=== PATIENT | male | born 1950 | race Caucasian/White ===

== ENCOUNTER 2020-07-30 02:15 | Inpatient (IN) | payer MEDICARE, OTHER, SELFPAY ==
[2020-07-30] VITALS (59 sets, daily range): BP systolic 105–195; BP diastolic 52–102; PULSE 53–91; RESP 13–34; TEMP 35.9–36.2; O2SAT 70–100; BMI 20.4
[2020-07-30 03:00] LABS: COVID19 -Nasal RAPID Negative (Negative)
[2020-07-30] MEDS: SODIUM CHLORIDE 0.9% 1,000 ML 100 ML IV ×2 (03:00→21:48)
[2020-07-30 03:01] LABS: Add Manual Diff / Slide Review NO; Basophils Absolute Auto 0 /uL (0-100); Basophils Percent Auto 0.1 % (0-2); Eosinophils Absolute Auto 0 /uL (0-450); Hematocrit 34.8 % (41-53); Hemoglobin 11.7 g/dL (13.5-17.5); Lymphocytes Absolute Auto 100 /uL (1100-4500); Lymphocytes Percent Auto 2.3 % (25-40); Mean Corpuscular HGB Conc 33.8 % (30-36); Mean Corpuscular Hemoglobin 32.2 PG (26-34); Mean Corpuscular Volume 95.4 fL (80-100); Monocytes Absolute Auto 100 /uL (0-900); Monocytes Percent Auto 1.6 % (3-14); Neutrophils Absolute Auto 5300 /uL (1500-7000); Platelet Count 274 X10^3/uL (150-400); Red Blood Cell Count 3.65 X10^6/uL (4.5-5.9); Red Cell Distribution Width 12.6 % (11.6-14.8); White Blood Cell Count 5.6 X10^3/uL (4.5-11.0)
[2020-07-30 03:12] LABS: Alanine Aminotransferase 22 IU/L (<50); Albumin 3.9 g/dL (3.5-5.0); Albumin Globulin Ratio 1.2 (1.0-2.8); Alkaline Phosphatase 63 U/L (38-126); Aspartate Aminotransferase 27 IU/L (17-59); Bilirubin Total 0.7 mg/dL (0.2-1.3); Blood Urea Nitrogen 33 mg/dL (9-20); Calcium 9.5 mg/dL (8.4-10.2); Estimated Glomerular Filt Rate > 60.0 mL/min (>60); Globulin 3.3 g/dL (1.7-4.1); Glucose 100 mg/dL (80-110); HEMOLYSIS < 15 (0-50); Potassium 4.9 mmol/L (3.4-5.1); Sodium 124 mmol/L (137-145); Total Protein 7.2 g/dL (6.3-8.2)
[2020-07-30] MEDS: methylPREDNISolone 125 MG/2 ML VIAL 60 MG IV ×3 (03:15→19:12)
[2020-07-30 03:18] LABS: Carbon Dioxide 36 mmol/L (22-32)
[2020-07-30] MEDS: carvediloL 6.25 MG TABLET PO ×3 (03:18→21:47)
[2020-07-30 03:19] LABS: Chloride 76 mmol/L (98-107)
--- NOTE | 2020-07-30 03:27 | P.HP_ITS ---
History of Present Illness History of Present Illness Date Patient Seen: 07/30/20 Time Patient Seen: 03:00 Chief complaint: COPD exacerbation on bipap Narrative: Joseph Soliman 69-year-old male with end-stage COPD, essential hypertension who is a direct transfer from [facility] for acute hypoxic and hypercarbic respiratory failure. He is home oxygen-dependent normally is supposed to use 3 L during the day and 5 L at night. He also uses a Trilogy machine for BiPAP and CPAP mode as he also has obstructive sleep apnea. He states that it has been hard to breathe and he for the past several weeks has been using 5 L of oxygen during the day instead of reducing it down to 3 L. He denies fevers sweats or chills, denies chest pain, denies ever having cardiac issues, denies nausea or vomiting, denies abdominal pain, denies dysuria diarrhea or constipation. He does have exertional dyspnea which limits his activities at home. The patient was requested for a lateral transfer at the patient's family's request with specific avoidance of 1 of the providers there. Per the admitting provider's note she had contacted the family member to update her on patient's condition and in her note stated that she informed the daughter that she was concerned that patient may not make it through the night because of his dyspnea and that at that time he was on BiPAP and only saturating at 93%. I did speak to the daughter and she was very upset about that initial phone call and demanded that the hospital transfer him to this facility. Per the transferring provider who was different from the admitting provider, the patient initially presented with a pH of 7.18 and a CO2 of 86 and then at 4:00 p.m. his pH was 7.27 with a CO2 of 73. On 35% FiO2 ePAP 5 and a respiratory rate of 20. The patient is unaware of what his Trilogy settings are at home. While at [facility] he was diagnosed with an acute respiratory failure secondary to exacerbation of end-stage COPD and pneumonia. He was initiated on IV ceftriaxone and IV azithromycin and received one dose there. Upon arrival to the floor the patient's temperature was 97.2?, blood pressure 14 5/75, heart rate 87, respiratory rate of 20 2% on FiO2 of 35 oxygen saturation of 95% he weighs 60.9 kg. WBC drawn here was 5.6, RBC 3.65, hemoglobin 11.7, hematocrit 34.8, platelet count was 274. His WBC upon arrival to [facility] was over 18,000 per the record. Our initial ABG indicated improvement with the ABG of pH of 7.32, pCO2 of 74.5, PO2 of 83, bicarb of 39, CO2 41, with a base excess of 12, FiO2 35%, sodium was 124, potassium 4.9, chloride 76, CO2 36, BUN 33, creatinine 0.75, GFR is greater than 6, glucose 100, magnesium 2.0, calcium 9.5, liver enzymes are within normal limits, troponin is 0.020, proBNP is 398, COVID-19 is negative. Patient History Medical History (Updated 07/30/20 @ 04:48 by KIERSTEN Santiago) Acute on chronic respiratory failure with hypoxia and hypercapnia (Acute) Benign prostatic hyperplasia with urinary retention (Chronic) COPD (chronic obstructive pulmonary disease) (Acute) Essential hypertension (Acute) Hx of prostatic malignancy (Acute) Hypercapnemia (Acute) Obstructive sleep apnea (Chronic) Surgical History (Updated 07/30/20 @ 03:34 by KIERSTEN Santiago) History of cataract removal with insertion of prosthetic lens (Acute) Family & Social History Family History (Updated 07/30/20 @ 03:37 by KIERSTEN Santiago) Father Primary cancer of brain Colon polyps Mother Ovarian cancer Social History: Lives with and step daughter. 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 Tobacco & Substance use: 45 year pack history, quit 2009 drinks 3 beers a day Comment: Retired [employer] Home Medications and Allergies Allergies Allergy/AdvReac Type Severity Reaction Status Date / Time No Known Drug Allergies Allergy Verified 07/30/20 03:14 Review of Systems Review of Systems ROS: Yes All systems reviewed with the patient and are negative except as otherwise documented Exam Vital Signs (past 8 hours): - 07/30/20 02:10 07/30/20 02:40 07/30/20 03:18 Temperature 97.2 F L Pulse Rate 91 H 90 89 Respiratory Rate 25 H 23 Blood Pressure 145/75 H 145/75 H 145/75 H Pulse Oximetry 96 95 Fraction of Inspired Oxygen 40 Oxygen Delivery Method BiPAP Narrative Exam Narrative: Gen: Alert, oriented, thin 69 y.o. male, on bipap HEENT: normocephalic, atraumatic, conjunctiva clear, sclera non-icteric, oral mucosa pink and moist Neck: supple, full ROM, no JVD, trachea is midline Resp: On BiPap, lungs sounds deminished but clear, accesory muscle use CV: tachy but regular, no murmur or rubs Abd: soft, non-tender, normoactive BTs Skin: multiple bruises on hands and arms, uneven pigmentation Neuro: Alert and oriented X 4 w/no focal deficits. Speech clear and coherent. Extremities: moves all 4 extremities, is ambulatory, lack of lower extremity muscle mass, negative Jayson?s sign Psyche: normal mood and affect. Objective Labs Result Diagrams: 07/30/20 02:43 07/30/20 02:43 Labs: Laboratory Results - last 24 hr 07/30/20 07/30/20 07/30/20 02:00 02:43 02:43 WBC 5.6 RBC 3.65 L Hgb 11.7 L Hct 34.8 L MCV 95.4 MCH 32.2 MCHC 33.8 RDW 12.6 Plt Count 274 Neut % (Auto) 96.0 H Lymph % (Auto) 2.3 L [place] % (Auto) 1.6 L Eos % (Auto) 0.0 L Baso % (Auto) 0.1 Neut # (Auto) 5300 Lymph # (Auto) 100 L [place] # (Auto) 100 Eos # (Auto) 0 Baso # (Auto) 0 Sodium 124 L Potassium 4.9 Chloride 76 L* Carbon Dioxide 36 H BUN 33 H Creatinine 0.75 Estimated GFR > 60.0 BUN/Creatinine Ratio 44.0 H Glucose 100 Calcium 9.5 Magnesium 2.0 Total Bilirubin 0.7 AST 27 ALT 22 Alkaline Phosphatase 63 Total Protein 7.2 Albumin 3.9 Globulin 3.3 Albumin/Globulin Ratio 1.2 COVID-19 PCR Negative Assessment & Plan Assessment & Plan narrative: Joseph Soliman is admitted to the ICU for acute respiratory failure secondary to hypoxia and hypercapnia associated with an acute exacerbation of COPD as a direct admission from [facility]. Acute respiratory failure secondary to hypoxia and hypercapnia associated with an acute exacerbation of COPD, present on admission -patient is placed on BiPAP settings of 35%, peep of 5, respiratory rate of 20 with a goal oxygenation between 87-93%. -albuterol, DuoNeb, and Pulmicort nebulizers -I have written him for 2 doses of Solu-Medrol 125 mg -Currently has a compensated respiratory acidosis. ABG in the mornings -Patient is housed in the ICU Presumed [place] [address] at [facility], improved upon admission -continue IV azithromycin 500 mg daily and IV ceftriaxone 1 g daily, consider deescalating with improvement Essential hypertension, chronic chronic present on admission -continue home dose of carvedilol 6.25 mg p.o. b.i.d., lisinopril 40 mg p.o. daily, and diltiazem 360 mg p.o. daily -will need to locate PCP records to see if the patient has a history of atrial fibrillation -he will be on telemetry -EKG was normal sinus rhythm VTE prophylaxis: Wells risk score: 1.5 intermediate risk Enoxaparin 40 mg subQ daily Consults: none Patient is admitted under inpatient status with expected length of stay greater than 2 midnights due to severity of presenting symptoms, risk of adverse event, and complexity of treatment plan. FEN: IV NS at 100 ml/hour, low sodium, C/BMP and magnesium in the am of 07/31 Dispo: Eventual discharge to home. Daughter has arranged for multimedia specialist care and if he is deconditioned will want in-home PT. Contact: Debbie, contact info in the chart Code Status: DNR/DNI as discussed with patient. Scores Wells' Criteria for PE Clinical signs and symptoms of DVT: No PE is #1 Dx or equally likely: No Heart rate > 100: No Immobilization at least 3 days or surg in previous 4 weeks: Yes History of PE or DVT: No Hemoptysis: No Malignancy w/Treatment within 6 months or palliative: No Wells' PE Score total: 1.5 Quality VTE Deep Vein Thrombosis/Pulmonary Embolism Present on Admission: No
[2020-07-30 03:34] LABS: PCO2 ABG 74.5 mmHg (35-45); pH ABG 7.32 (7.35-7.45)
[2020-07-30 03:35] LABS: Fractionated Inspired Oxygen 0.35; HCO3 ABG 39 mmol/L (22-26); Oxygen Saturation ABG 95 % (95-100); PO2 ABG 83 mmHg (80-100); TCO2 ABG 41 mmol/L (21-31)
[2020-07-30 03:50] LABS: NT-proBNP (BNP-Adult 18+) 398 pg/mL (<125)
[2020-07-30] MEDS: AZITHROMYCIN 500 MG in DEXTROSE 5% IN WATER 250 ML IV (05:28)
[2020-07-30 06:31] LABS: Bacteria Urine None Seen; WBC Urine None Seen (0-5/HPF)
[2020-07-30 06:32] LABS: Appearance Urine UA CLEAR; Bilirubin Urine UA NEGATIVE (NEGATIVE); Color Urine UA YELLOW; Glucose Urine UA NEGATIVE (Negative); Ketones Urine UA 1+ (NEGATIVE); Leukocyte Esterase Urine UA NEGATIVE (NEGATIVE); Nitrite Urine UA NEGATIVE (Negative); Occult Blood Urine UA TRACE-INTACT (Negative); Protein Urine UA NEGATIVE (Negative); Specific Gravity Urine UA 1.015 (1.000-1.035); Urobilinogen Urine UA 0.2 E.U./dL (0.2); pH Urine UA 5.5 (4.5-8.0)
[2020-07-30 06:42] LABS: Culture Indicated Urine Cult Not Indicated; Hyaline Casts Urine 0-1/LPF; RBC Urine 0-1/HPF (0-5/HPF); Squamous Epithelial Cell Urine 0-1 /HPF (0-5/HPF)
--- NOTE | 2020-07-30 06:42 | PC.NURSE ---
Admit Note-Patient is direct admit from [facility], arrived to room 227 at 0200, alert, oriented to person, place, and situation, forgetful but able to participate in care and answer questions. Placed on our Bi-pap .35, 20/5, 16, patient is tachypneic, breathing 20s-30s, LS tight and diminished. SpO2 goal 87-93%, patient holds at that while HOB elevated, will desat to 83% if down, and slow to recover. SR, VSS. Covid-19 negative. Daughter, Debbie Abebe, who is DPOA arrived for short visit with patients cell phone, tablet, order entry, glasses, his trilogy, and clothes, she will return later today Soon after arrival RT changed Bi-pap settings to .30, 20/5, rate 20.
[2020-07-30] MEDS: ALBUTEROL/IPRATROPIUM 3 ML AMPUL INH ×2 (07:18→10:13)
[2020-07-30] MEDS: BUDESONIDE 0.5 MG/2 ML NEB INH ×2 (07:18→21:22)
[2020-07-30] MEDS: lisinopriL 20 MG TABLET 40 MG PO (08:50)
[2020-07-30] MEDS: ENOXAPARIN 40 MG/0.4 ML SYRINGE SUBCUT (08:50)
[2020-07-30] MEDS: dilTIAZem CD 180 MG CAP 360 MG PO (08:51)
[2020-07-30] MEDS: PANTOPRAZOLE 40 MG VIAL IV (08:52)
[2020-07-30 10:23] LABS: PCO2 ABG 86.4 mmHg (35-45); PO2 ABG 71 mmHg (80-100); pH ABG 7.25 (7.35-7.45)
[2020-07-30 10:24] LABS: Fractionated Inspired Oxygen 35; HCO3 ABG 38 mmol/L (22-26); Oxygen Saturation ABG 90 % (95-100); TCO2 ABG 40 mmol/L (21-31)
[2020-07-30] MEDS: CEFTRIAXONE 1 GM/50 ML FROZ.PIGGY IV (12:08)
[2020-07-30 13:17] LABS: BUN Creatinine Ratio 52.9 (6-22); Blood Urea Nitrogen 37 mg/dL (9-20); Carbon Dioxide 38 mmol/L (22-32); Chloride 78 mmol/L (98-107); Estimated Glomerular Filt Rate > 60.0 mL/min (>60); Glucose 111 mg/dL (80-110); HEMOLYSIS < 15 (0-50); Potassium 5.3 mmol/L (3.4-5.1); Sodium 122 mmol/L (137-145)
[2020-07-30 13:39] LABS: Procalcitonin 0.28 ng/mL (<0.5)
--- NOTE | 2020-07-30 15:18 | PC.NURSE ---
PT ON BIPAP MOST OF DAY AT 30-35% WITH SPO2 86-96% LUNGS COARSE THROUGHOUT - NO NOTED EDEMA - WORKLOAD OF BREATHING IMMENSE - DAUGHTER AT BEDSIDE AT PRESENT- DOES CONFIRM DNR/DNI- ORDER RECEIVED FOR COLUNGA PLACEMENT DUE TO DECREASED UOP-
[2020-07-30] MEDS: MORPHINE 2 MG/ML INJ IV (15:34)
[2020-07-30 15:37] LABS: Sodium Urine Random < 5 mmol/L (30-90)
--- NOTE | 2020-07-30 16:37 | CM.DANOTE ---
Addendum entered by Poppy Duarte 07/31/20 13:51: Update: Met with patient and daughter/Debbie in AM rounds. Patient actually uses trilogy at night at home. Notary available today and assisted patient with medical DPOA paperwork. Per Dr. Marinelli patient's status unclear at this time. If patient remains hospitalized on Thursday08-03-20 he may consult palliative. However, he plans to discuss this with patient and family first. P: CM team following closely. KJS Original Note: DCP/Assessment: Reviewed chart. Patient is a 69 year old male admitted [facility] with [facility] failure. PCP: listed is Jazmin Mauricio. Primary payor is 1)[employer] 2)[employer]. Met with patient in AM rounds. Provider reports patient currently with COPD exacerbation. Patient currently on BiPAP. Received request this afternoon from RN indicating that patient's daughter/DPOA Debbie wanted to see CM produce team member. Met with Sania in patient's room explained CM/SW role. Daughter reports that there has been a lot of stress at home. Currently patient and spouse in process of removing there other daughter from the home. DPOA/Debbie reports that this has been very stressful for patient. Also patient having difficulty with breathing due to air quality. Patient live with spouse and other family members. Daughter reports that plan is for patient to return home when stable. Daughter/Debbie and her daughter plan to caregiver 01/06 both patient and spouse. Provided daughter with DPOA paperwork as she requested. Daughter does have paperwork indicating she is DPOA but she would like to update it to exclude her sister. In original document sister was listed as 2nd to contact. In addition, current paperwork is not notarized which daughter would prefer. P: CM team to follow closely. Would recommend therapy evaluation when patient medically appropriate. Patient may benefit from home health. GODFREY Morrison Discharge Planning/Care Management Advanced directive, confirm from FAMILY Start: 07/30/20 04:19 Freq: Q24H Status: Active Protocol: Document 07/30/20 05:00 SMS (Rec: 07/30/20 06:10 SMS [id number]) Advance Directive, confirm on record Time 05:00 Person contacted Debbie Abebe Copy received Yes Advanced directive available on record Yes CM Discharge Assessment Start: 07/30/20 16:31 Freq: Status: Active Protocol: Document 07/30/20 16:32 KJS (Rec: 07/30/20 16:37 KJS [id number]) Discharge Planning Assessment Assigned Hand Launderer GODFREY Morrison Contact Information Debbie Abbee # [phone] Advance Directives? Yes: has at home History Provided By Patient,Family Member,Medical Record Prior Living Arrangements House Household Members spouse,family Type of transporation used prior to Relies on Others admit Independent with ADL's Yes Is patient alert and oriented? Yes Caregiver for Another Yes: caregiver for spouse DME Already Rented / Owned Oxygen Comment CPAP for home use. Barriers to Discharge No Comment Anticipate that patient will d /c home with supportive family . Unclear at this time if patient will have any d/c needs. Discharge Plan Home Whiteboard Updated in Patient Room with Yes name and ext. # of Hand Launderer Review Status In Process Next Review Type Continued Stay Review
[2020-07-31] VITALS (59 sets, daily range): BP systolic 84–162; BP diastolic 50–76; PULSE 43–67; RESP 12–44; TEMP 31–36.5; O2SAT 79–100
[2020-07-31] MEDS: MORPHINE 2 MG/ML INJ IV ×3 (01:59→19:37)
[2020-07-31] MEDS: methylPREDNISolone 125 MG/2 ML VIAL 60 MG IV ×3 (01:59→19:36)
[2020-07-31] MEDS: AZITHROMYCIN 500 MG in DEXTROSE 5% IN WATER 250 ML IV (02:20)
[2020-07-31 05:30] LABS: Add Manual Diff / Slide Review NO; Basophils Absolute Auto 0 /uL (0-100); Basophils Percent Auto 0.3 % (0-2); Eosinophils Absolute Auto 0 /uL (0-450); Eosinophils Percent Auto 0.1 % (2-4); Hemoglobin 11.2 g/dL (13.5-17.5); Lymphocytes Absolute Auto 300 /uL (1100-4500); Lymphocytes Percent Auto 4.9 % (25-40); Mean Corpuscular HGB Conc 33.9 % (30-36); Mean Corpuscular Hemoglobin 32.4 PG (26-34); Mean Corpuscular Volume 95.5 fL (80-100); Monocytes Absolute Auto 400 /uL (0-900); Monocytes Percent Auto 6.5 % (3-14); Neutrophils Absolute Auto 4800 /uL (1500-7000); Neutrophils Percent Auto 88.2 % (50-75); Platelet Count 272 X10^3/uL (150-400); Red Blood Cell Count 3.46 X10^6/uL (4.5-5.9); Red Cell Distribution Width 12.1 % (11.6-14.8); White Blood Cell Count 5.5 X10^3/uL (4.5-11.0)
[2020-07-31 05:43] LABS: Alanine Aminotransferase 18 IU/L (<50); Albumin 3.5 g/dL (3.5-5.0); Albumin Globulin Ratio 1.3 (1.0-2.8); Alkaline Phosphatase 56 U/L (38-126); Aspartate Aminotransferase 21 IU/L (17-59); BUN Creatinine Ratio 55.2 (6-22); Bilirubin Total 0.3 mg/dL (0.2-1.3); Blood Urea Nitrogen 48 mg/dL (9-20); Calcium 9.2 mg/dL (8.4-10.2); Carbon Dioxide 39 mmol/L (22-32); Chloride 80 mmol/L (98-107); Estimated Glomerular Filt Rate > 60.0 mL/min (>60); Globulin 2.8 g/dL (1.7-4.1); Glucose 179 mg/dL (80-110); HEMOLYSIS < 15 (0-50); Magnesium 2.2 mg/dL (1.6-2.3); Potassium 5.2 mmol/L (3.4-5.1); Sodium 123 mmol/L (137-145); Total Protein 6.3 g/dL (6.3-8.2)
--- NOTE | 2020-07-31 06:29 | PC.NURSE ---
Lathe Operator Note-Patient wore Bi-pap throughout the night, FIO2 .30, 20/5, 20, SpO2 >92% RR 20s mostly. Voided 200ml in urinal at 0200, says he still feels like he has to urinate, agreeable to Ortiz placement, has had 100ml alison UOP since. Patient asked if he was getting the furosemide, discussed that with the in-house CONDEMNATION ENGINEER. Medicated with 2mg IV morphine once for dyspnea after activity.
--- NOTE | 2020-07-31 08:09 | PC.NURSE ---
INITIAL ASSESSMENT COMPLETE- pt reported not sleeping well at all last pm- did report both incisional pain and sensations of a full rectum-reporting she has passed 2 small stools rectally- per her request, she was medicated for this discomfort and with lorazepam for her anxiety and allowed to nap this am after taking some breakfast -
[2020-07-31] MEDS: PANTOPRAZOLE 40 MG VIAL IV (08:51)
[2020-07-31] MEDS: ENOXAPARIN 40 MG/0.4 ML SYRINGE SUBCUT (08:52)
[2020-07-31] MEDS: SODIUM CHLORIDE 0.9% FLUSH 10 ML IV (08:52)
[2020-07-31] MEDS: lisinopriL 20 MG TABLET 40 MG PO (08:52)
[2020-07-31] MEDS: carvediloL 6.25 MG TABLET PO (08:52)
[2020-07-31] MEDS: dilTIAZem CD 180 MG CAP 360 MG PO (08:53)
[2020-07-31 09:46] LABS: Fractionated Inspired Oxygen 30; HCO3 ABG 40 mmol/L (22-26); Oxygen Saturation ABG 88 % (95-100); PCO2 ABG 79.6 mmHg (35-45); PO2 ABG 63 mmHg (80-100); TCO2 ABG 42 mmol/L (21-31); pH ABG 7.31 (7.35-7.45)
[2020-07-31] MEDS: SODIUM CHLORIDE 0.9% 1,000 ML 100 ML IV (10:11)
[2020-07-31] MEDS: ALBUTEROL/IPRATROPIUM 3 ML AMPUL INH (10:42)
[2020-07-31] MEDS: BUDESONIDE 0.5 MG/2 ML NEB INH ×2 (10:42→19:24)
[2020-07-31] MEDS: CEFTRIAXONE 1 GM/50 ML FROZ.PIGGY IV (12:20)
--- NOTE | 2020-07-31 12:20 | P.PN_ITS ---
Subjective Subjective Date Patient Seen: 07/31/20 Time Patient Seen: 12:20 Interval history: Joseph Soliman 69-year-old male with end-stage COPD, essential hypertension who is a direct transfer from [facility] for acute hypoxic and hypercarbic respiratory failure. He is being managed for a COPD exacerbation and possible pneumonia. His blood gases remained fairly stable with a pCO2 of around 80. His acidosis is improving despite this. He appears more comfortable and alert on BiPAP therapy, but when taken off of BiPAP desaturates quickly and gets very tachypneic. He denies any chest pain, nausea, vomiting, palpitations. He has no abdominal pain. He has no lower extremity edema or orthopnea. Had a long discussion with the patient and daughter at bedside regarding his COPD and that his prognosis is extremely poor given the severity of his COPD and continued need for BiPAP therapy. They are open to a palliative care consultation if the patient is still here on Thursday, when the palliative care provider returns. We further did discuss that he could still worsen, and given that he is very clear about not wanting to be hooked up to a breathing machine he still may not make it through this hospitalization. Exam Vital Signs (past 8 hours): - 07/31/20 04:30 07/31/20 05:00 07/31/20 05:30 Temperature Pulse Rate 54 L 52 L 52 L Respiratory Rate 24 23 22 Blood Pressure 125/61 Pulse Oximetry 96 96 96 07/31/20 05:47 07/31/20 06:00 07/31/20 07:00 Temperature Pulse Rate 51 L 50 L Respiratory Rate 24 23 Blood Pressure 125/61 116/56 L 123/56 L Pulse Oximetry 97 97 07/31/20 08:00 07/31/20 09:00 07/31/20 09:45 Temperature 96.5 F L Pulse Rate 49 L 60 59 L Respiratory Rate 18 32 H 29 H Blood Pressure 126/60 162/76 H Pulse Oximetry 97 92 95 07/31/20 10:00 07/31/20 10:46 07/31/20 11:00 Temperature 97.7 F Pulse Rate 59 L 59 L Respiratory Rate 33 H 26 H Blood Pressure 135/63 136/72 Pulse Oximetry 94 90 L 07/31/20 12:00 Temperature Pulse Rate 55 L Respiratory Rate 26 H Blood Pressure 123/58 L Pulse Oximetry 95 Fraction of Inspired Oxygen 30 Oxygen Delivery Method BiPAP Oxygen Flow Rate 3 Narrative Exam Narrative: Gen: Alert, oriented, thin 69 y.o. male, on bipap HEENT: normocephalic, atraumatic, conjunctiva clear, sclera non-icteric, oral mucosa pink and moist Neck: supple, full ROM, no JVD, trachea is midline Resp: On BiPap, lungs sounds deminished but clear, accesory muscle use CV: tachy but regular, no murmur or rubs Abd: soft, non-tender, normoactive BTs Skin: multiple bruises on hands and arms, uneven pigmentation Neuro: Alert and oriented X 4 w/no focal deficits. Speech clear and coherent. Extremities: moves all 4 extremities, is ambulatory, lack of lower extremity muscle mass, negative Jayson?s sign Psyche: normal mood and affect. Objective Labs Result Diagrams: 07/31/20 04:52 07/31/20 04:52 Labs: Laboratory Results - last 24 hr 07/30/20 07/30/20 07/30/20 03:10 04:40 10:00 WBC RBC Hgb Hct MCV MCH MCHC RDW Plt Count Neut % (Auto) Lymph % (Auto) [place] % (Auto) Eos % (Auto) Baso % (Auto) Neut # (Auto) Lymph # (Auto) [place] # (Auto) Eos # (Auto) Baso # (Auto) ABG pH 7.32 L 7.25 L* ABG pCO2 74.5 H* 86.4 H* ABG pO2 83 71 L ABG HCO3 39 H 38 H ABG Total CO2 41 H 40 H ABG O2 Saturation 95 90 L ABG Base Excess 12.0 H 10.0 H FiO2 0.35 35 Sodium Potassium Chloride Carbon Dioxide BUN Creatinine Estimated GFR BUN/Creatinine Ratio Glucose Calcium Magnesium Total Bilirubin AST ALT Alkaline Phosphatase Total Protein Albumin Globulin Albumin/Globulin Ratio Procalcitonin Ur Random Sodium < 5 L 07/30/20 07/30/20 07/31/20 12:50 12:50 04:52 WBC 5.5 RBC 3.46 L Hgb 11.2 L Hct 33.0 L MCV 95.5 MCH 32.4 MCHC 33.9 RDW 12.1 Plt Count 272 Neut % (Auto) 88.2 H Lymph % (Auto) 4.9 L [place] % (Auto) 6.5 Eos % (Auto) 0.1 L Baso % (Auto) 0.3 Neut # (Auto) 4800 Lymph # (Auto) 300 L [place] # (Auto) 400 Eos # (Auto) 0 Baso # (Auto) 0 ABG pH ABG pCO2 ABG pO2 ABG HCO3 ABG Total CO2 ABG O2 Saturation ABG Base Excess FiO2 Sodium 122 L Potassium 5.3 H Chloride 78 L Carbon Dioxide 38 H BUN 37 H Creatinine 0.70 Estimated GFR > 60.0 BUN/Creatinine Ratio 52.9 H Glucose 111 H Calcium 9.0 Magnesium Total Bilirubin AST ALT Alkaline Phosphatase Total Protein Albumin Globulin Albumin/Globulin Ratio Procalcitonin 0.28 Ur Random Sodium 07/31/20 07/31/20 04:52 08:33 WBC RBC Hgb Hct MCV MCH MCHC RDW Plt Count Neut % (Auto) Lymph % (Auto) [place] % (Auto) Eos % (Auto) Baso % (Auto) Neut # (Auto) Lymph # (Auto) [place] # (Auto) Eos # (Auto) Baso # (Auto) ABG pH 7.31 L ABG pCO2 79.6 H* ABG pO2 63 L ABG HCO3 40 H ABG Total CO2 42 H ABG O2 Saturation 88 L ABG Base Excess 13.0 H FiO2 30 Sodium 123 L Potassium 5.2 H Chloride 80 L Carbon Dioxide 39 H BUN 48 H Creatinine 0.87 Estimated GFR > 60.0 BUN/Creatinine Ratio 55.2 H Glucose 179 H Calcium 9.2 Magnesium 2.2 Total Bilirubin 0.3 AST 21 ALT 18 Alkaline Phosphatase 56 Total Protein 6.3 Albumin 3.5 Globulin 2.8 Albumin/Globulin Ratio 1.3 Procalcitonin Ur Random Sodium Assessment & Plan Assessment & Plan narrative: Joseph Soliman is a 69 year old male with PMH of HTN and severe COPD admitted for acute on chronic respiratory failure secondary to hypoxia and hypercapnia associated with an acute exacerbation of COPD as a d irect admission from [facility]. He has shown minimal improvement with BIPAP but remains DNR/DNI. 1. Acute on chronic hypoxemic and hypercapnic Respiratory failure, present on admission -patient has been on BiPAP therapy for close to 48 hours without improvement in PCO2 although his acidosis seemed to be improving. Patient is adament about DNR/DNI status. Warned patient and family that his prognosis is poor and he may not survive the hospitalization. They are interested in palliative care consultation if he is still here on Thursday when service is again available. -albuterol, DuoNeb, and Pulmicort nebulizers -continue IV steroids 60 mg q8 hr. -imaging at [facility] did show diffuse interstitial prominence on the right. 2. Community acquired pneumonia -continue IV azithromycin 500 mg daily x3 doses and IV ceftriaxone 1 g daily x5 days [place] [address] [address] [facility] with imaging as noted above. 3. COPD with exacerbation, present on admisison - patient noted to have severe COPD at baseline with an FEV1/FVC of 13 per [facility] records. - continue management as noted above in problem #1. 4. Essential hypertension, chronic chronic present on admission -continue home dose of carvedilol 6.25 mg p.o. b.i.d., lisinopril 40 mg p.o. daily, and diltiazem 360 mg p.o. daily -EKG was normal sinus rhythm 5. Hyponatremia, chronic, present on admission - per [facility] records hyponatremia is chronic in the mid to low 120s. Urine sodium is <5, urine osm pending. Will continue NS infusion. VTE prophylaxis: Wells risk score: 1.5 intermediate risk Enoxaparin 40 mg subQ daily Dispo: Patient is admitted under inpatient status.prognosis remains guarded if continues without improvement on bipap. Code: DNR/DNI as discussed with patient and daughter. COVID-19 COVID-19 status: Negative Quality VTE Deep Vein Thrombosis/Pulmonary Embolism Present on Admission: No
--- NOTE | 2020-07-31 14:38 | PC.NURSE ---
pt continues to be bipap dependent at 30% fio2 - he can tolerate being off and on 4l hfnc for short periods of time ( meals etc)- plan is for to visit with POA- daughter later this day. Lung banuelos remain coarse and diminished- he doesn't tolerate hardly any exertion at all- refusing bath and oral care this shift- waffle cushion to decrease risk for skin breakdown- very poor nutrition continues- #2/2 liters of ns infusing- prn iv ms to ease the work of breathing rather than pain( which he denies)
[2020-07-31 16:31] LABS: Osmolality Urine 446 mOsmol/kg (.)
--- NOTE | 2020-07-31 23:24 | PC.NURSE ---
Evening shift note Pt continues to be bipap dependent 50% 20/5, receiving morphine 2mg Q4 for work of breathing, he has not been tolerating being off bipap for meals or visits well on 5L hfnc, desaturating to 70% while and daughter were here. Lung sounds are coarse and diminished bilaterally. Pt doesn't tolerate any exertion at all, refuses oral care, bathing during this nurses shift. Waffle cushion in place to decrease skin break down. Pt has remained lethargic, sleepy and bradycardic HR 54-44, BP has been low as well 84/50 being the lowest during this shift. Nutrition has been poor, urine output this shift has been 130mL, irrigated the farr to check for blockage, none was found. Daughter called at 2100 to check on father and ask if she should bring mother back tomorrow to spend time with father, I suggested she do so and also started the conversation regarding the possibility of making her Dad comfortable on Comfort Care. Daughter states that she would like to have that conversation with Dr Marinelli tomorrow. Bed low and locked, call light within reach, will continue to monitor.
[2020-08-01] VITALS (51 sets, daily range): BP systolic 89–167; BP diastolic 50–101; PULSE 46–72; RESP 12–33; TEMP 28.3–36.8; O2SAT 90–100
[2020-08-01] MEDS: AZITHROMYCIN 500 MG in DEXTROSE 5% IN WATER 250 ML IV (02:40)
[2020-08-01] MEDS: methylPREDNISolone 125 MG/2 ML VIAL 60 MG IV ×3 (02:41→18:45)
[2020-08-01 05:16] LABS: Add Manual Diff / Slide Review NO; Basophils Absolute Auto 0 /uL (0-100); Basophils Percent Auto 0.1 % (0-2); Eosinophils Absolute Auto 0 /uL (0-450); Hematocrit 31.7 % (41-53); Hemoglobin 10.9 g/dL (13.5-17.5); Lymphocytes Absolute Auto 200 /uL (1100-4500); Lymphocytes Percent Auto 3.4 % (25-40); Mean Corpuscular HGB Conc 34.3 % (30-36); Mean Corpuscular Hemoglobin 32.8 PG (26-34); Mean Corpuscular Volume 95.7 fL (80-100); Monocytes Absolute Auto 300 /uL (0-900); Monocytes Percent Auto 3.7 % (3-14); Neutrophils Absolute Auto 6500 /uL (1500-7000); Neutrophils Percent Auto 92.8 % (50-75); Platelet Count 271 X10^3/uL (150-400); Red Blood Cell Count 3.31 X10^6/uL (4.5-5.9); Red Cell Distribution Width 12.5 % (11.6-14.8)
[2020-08-01 05:24] LABS: Alanine Aminotransferase 15 IU/L (<50); Albumin 3.2 g/dL (3.5-5.0); Albumin Globulin Ratio 1.2 (1.0-2.8); Alkaline Phosphatase 49 U/L (38-126); Aspartate Aminotransferase 16 IU/L (17-59); BUN Creatinine Ratio 54.2 (6-22); Bilirubin Total 0.3 mg/dL (0.2-1.3); Bilirubin Unconjugated 0.1 mg/dL (0.0-1.1); Blood Urea Nitrogen 58 mg/dL (9-20); Calcium 9.1 mg/dL (8.4-10.2); Carbon Dioxide 38 mmol/L (22-32); Chloride 84 mmol/L (98-107); Estimated Glomerular Filt Rate > 60.0 mL/min (>60); Globulin 2.6 g/dL (1.7-4.1); Glucose 173 mg/dL (80-110); HEMOLYSIS < 15 (0-50); Magnesium 2.3 mg/dL (1.6-2.3); Sodium 124 mmol/L (137-145); Total Protein 5.8 g/dL (6.3-8.2)
[2020-08-01 05:29] LABS: Potassium 5.5 mmol/L (3.4-5.1)
[2020-08-01 06:35] LABS: Fractionated Inspired Oxygen 50; HCO3 ABG 39 mmol/L (22-26); Oxygen Saturation ABG 99 % (95-100); PO2 ABG 154 mmHg (80-100); TCO2 ABG 42 mmol/L (21-31)
[2020-08-01 06:36] LABS: PCO2 ABG 92.8 mmHg (35-45); pH ABG 7.23 (7.35-7.45)
--- NOTE | 2020-08-01 07:33 | PM.PN.1 ---
Subjective Subjective Date Patient Seen: 08/01/20 Time Patient Seen: 07:33 Interval history: Joseph Soliman 69-year-old male with end-stage COPD, essential hypertension who is a direct transfer from [facility] for acute hypoxic and hypercarbic respiratory failure. He is being managed for a COPD exacerbation and possible pneumonia. His blood gases had remained fairly stable with a pCO2 of around 80 until this morning when PCO2 jumped to 90. He is bradycardic and borderline hypotensive. I discussed with the family that his prognosis is not good given his severity of COPD and inability to improve with bipap therapy and that he is not responding to steroids or antibiotics. We discussed that the patient would have been intubated now two days ago for failing BIPAP therapy but that is not consistent with patient's goals of care as they realize he may never come off the ventilator. Extensive palliative care discussion as noted below. Exam Vital Signs (past 8 hours): - 08/01/20 00:00 08/01/20 00:01 08/01/20 01:00 Temperature 96.5 F L Pulse Rate 46 L 46 L 48 L Respiratory Rate 12 12 15 Blood Pressure 106/54 L 111/57 L Pulse Oximetry 99 99 97 08/01/20 02:00 08/01/20 03:00 08/01/20 04:25 Temperature 97.0 F L Pulse Rate 50 L 49 L 50 L Respiratory Rate 16 19 18 Blood Pressure 112/58 L 115/59 L 100/57 L Pulse Oximetry 97 97 97 08/01/20 05:00 08/01/20 06:00 Temperature Pulse Rate 50 L 47 L Respiratory Rate 26 H 17 Blood Pressure 109/57 L 94/51 L Pulse Oximetry 98 100 Fraction of Inspired Oxygen 30 Oxygen Delivery Method BiPAP Oxygen Flow Rate 50 Narrative Exam Narrative: Gen: intermittently alert and oriented, occasionally very drowsy and difficult to arouse, thin 69 y.o. male, on bipap HEENT: normocephalic, atraumatic, conjunctiva clear, sclera non-icteric, oral mucosa pink and moist Neck: supple, full ROM, no JVD, trachea is midline Resp: On BiPap, lungs sounds deminished but clear, no accessory muscle use CV: bradycardic, regular, no m/r/g. Abd: soft, non-tender, normoactive BTs Skin: multiple bruises on hands and arms, uneven pigmentation Neuro: Alert and oriented X 4 w/no focal deficits when alert, becoming more and more drowsy. Speech clear and coherent when arousable. Extremities: moves all 4 extremities, lack of lower extremity muscle mass, negative Jayson?s sign Psyche: normal mood and affect. Objective Labs Result Diagrams: 08/01/20 04:42 08/01/20 04:42 Labs: Laboratory Results - last 24 hr 07/30/20 07/31/20 08/01/20 16:34 08:33 04:42 WBC 7.0 RBC 3.31 L Hgb 10.9 L Hct 31.7 L MCV 95.7 MCH 32.8 MCHC 34.3 RDW 12.5 Plt Count 271 Neut % (Auto) 92.8 H Lymph % (Auto) 3.4 L [place] % (Auto) 3.7 Eos % (Auto) 0.0 L Baso % (Auto) 0.1 Neut # (Auto) 6500 Lymph # (Auto) 200 L [place] # (Auto) 300 Eos # (Auto) 0 Baso # (Auto) 0 ABG pH 7.31 L ABG pCO2 79.6 H* ABG pO2 63 L ABG HCO3 40 H ABG Total CO2 42 H ABG O2 Saturation 88 L ABG Base Excess 13.0 H FiO2 30 Sodium Potassium Chloride Carbon Dioxide BUN Creatinine Estimated GFR BUN/Creatinine Ratio Glucose Calcium Magnesium Total Bilirubin Conjugated Bilirubin Unconjugated Bilirubin AST ALT Alkaline Phosphatase Total Protein Albumin Globulin Albumin/Globulin Ratio Urine Osmolality 446 08/01/20 08/01/20 04:42 06:28 WBC RBC Hgb Hct MCV MCH MCHC RDW Plt Count Neut % (Auto) Lymph % (Auto) [place] % (Auto) Eos % (Auto) Baso % (Auto) Neut # (Auto) Lymph # (Auto) [place] # (Auto) Eos # (Auto) Baso # (Auto) ABG pH 7.23 L* ABG pCO2 92.8 H* ABG pO2 154 H ABG HCO3 39 H ABG Total CO2 42 H ABG O2 Saturation 99 ABG Base Excess 11.0 H FiO2 50 Sodium 124 L Potassium 5.5 H Chloride 84 L Carbon Dioxide 38 H BUN 58 H Creatinine 1.07 Estimated GFR > 60.0 BUN/Creatinine Ratio 54.2 H Glucose 173 H Calcium 9.1 Magnesium 2.3 Total Bilirubin 0.3 Conjugated Bilirubin 0.0 Unconjugated Bilirubin 0.1 AST 16 L ALT 15 Alkaline Phosphatase 49 Total Protein 5.8 L Albumin 3.2 L Globulin 2.6 Albumin/Globulin Ratio 1.2 Urine Osmolality Assessment & Plan Assessment & Plan narrative: Joseph Soliman is a 69 year old male with PMH of HTN and severe COPD admitted for acute on chronic respiratory failure secondary to hypoxia and hypercapnia associated with an acute exacerbation of COPD as a transfer from [facility]. He has shown minimal improvement with BIPAP, remains DNR/DNI. 1. Acute on chronic hypoxemic and hypercapnic Respiratory failure, present on admission -patient has been on BiPAP therapy for close to 72 hours without improvement in PCO2 (worsened this AM to 90). Patient is adament about DNR/DNI status. Warned patient and family that his prognosis is poor and he may not survive the hospitalization. They are interested in palliative care consultation if he is still here on Thursday when service is again available. Did discuss that tomorrow would be day 5 of steroids and antibiotics. He cannot go home on hospice with a trilogy machine. Family and patient aware it is highly unlikely the patient will be able to go home without BiPAP or trilogy machine and that he would likely pass away within a few hours after removing it. At this point I recommended continued antibiotics and steroids to complete course to give them time to discuss the next steps which includes comfort measures or continued bipap therapy in the hospital. Suspect family and patient will want comfort measures as they do primarily wish for patient to remain comfortable. -albuterol, DuoNeb, and Pulmicort nebulizers -continue IV steroids 60 mg q8 hr. -imaging at [facility] did show diffuse interstitial prominence on the right. -repeat CXR today with increased lung volumes and fibrotic vs infectious appearing consolidation in the right mid lung. -have ordered echo to evaluate for signs of right heart failure given severe COPD. 2. Community acquired pneumonia, present on admission. -continue IV azithromycin 500 mg daily x3 doses and IV ceftriaxone 1 g daily x5 days - [place] [id number] at [facility] with imaging as noted above. Leukocytosis now resolved. 3. COPD with exacerbation, present on admisison - patient noted to have severe COPD at baseline with an FEV1/FVC of 13 per [facility] records. Evidence of chronic hypercarbia with bicarb in the upper 30s consistently. - continue management as noted above in problem #1. 4. Essential hypertension, chronic chronic present on admission -continued home dose of carvedilol 6.25 mg p.o. b.i.d., lisinopril 40 mg p.o. daily, and diltiazem 360 mg p.o. daily. Have held these medications in the setting of bradycardia and hypotension since evening of 07/31. -EKG was normal sinus rhythm 5. Hyponatremia, chronic, present on admission - per [facility] records hyponatremia is chronic in the mid to low 120s. Urine sodium is <5, urine osm pending. Will continue NS infusion. - will check cortisol level given borderline hyperkalemia as well, although this does not typically give a low urine sodium. VTE prophylaxis: Wells risk score: 1.5 intermediate risk Enoxaparin 40 mg subQ daily Dispo: Patient is admitted under inpatient status. Prognosis remains poor as discussed above. Most likely outcome is that patient will pass away in the hosptial, ideal goal per family is for stabilization to go home on hospice. Code: DNR/DNI as discussed with patient and daughter. COVID-19 COVID-19 status: Negative Quality VTE Deep Vein Thrombosis/Pulmonary Embolism Present on Admission: No
--- NOTE | 2020-08-01 07:37 | DI.RAD.S_ITS ---
PROCEDURE: XR CHEST 1V INDICATIONS: shortness of breath TECHNIQUE: One view of the chest was acquired. COMPARISON: None. FINDINGS: Surgical changes and devices: None. Lungs and pleura: Lungs are hyperinflated and hyperlucent. There are bullous emphysematous changes in the left upper lung and mixed fibrosis and emphysematous changes in the right lung. Streak like horizontal right midlung opacity. There is tethering of the pleura at both lateral costophrenic angles. No pleural effusions or pneumothorax. Mediastinum: Mediastinal contours appear normal. Heart size is normal. Bones and chest wall: No suspicious bony lesions. Overlying soft tissues appear unremarkable. IMPRESSION: 1. Severe emphysematous changes and fibrotic changes. 2. Fibrosis versus underlying infectious process in the right mid lung. Dictated by: Jennifer Herron M.D. on 08/01/2020 at 8:04 Approved by: Jennifer Herron M.D. on 08/01/2020 at 8:09
--- NOTE | 2020-08-01 07:46 | DI.ECHO.S_ITS ---
[facility]---------+ [facility] +---------+ : : [address] : : : : [id number] : : : : Phone: [phone]+ Echocardiogram Report + + :Name: LATESHA EDGAR Study Date: 08/01/2020 Height: 68 in : :[facility] Weight: 141 lb : : Gender: Male BSA: 1.8 m2 : :: 1950 Age: 69 yrs BP: 109/57 mmHg: :Reason For Study: shortness of breath, SEVERE COPD, COR : :[place] : :Ordering Physician: HOSPITALIST, : :ANA Performed By: Ban Leon : :Referring: SANDRO BYRD : + + Interpretation Summary The left ventricle is not well seen but grossly appears normal in size and systolic function with a ejection fraction grossly estimated at 60 to 65%. There are no obvious focal wall motion abnormalities although endocardial definition is suboptimal. Diastolic function cannot be accurately assessed. The right ventricle is moderately enlarged and moderately hypokinetic. Pulmonary artery pressures cannot be estimated. Left and right atria are normal in size. The aortic valve is moderately calcified with probable moderate aortic stenosis with a peak transaortic velocity of 2.7 m/s and a mean gradient of 14 mmHg. There is no other significant valvular abnormality. Procedure: A two-dimensional transthoracic echocardiogram with color flow and Doppler was performed. The study quality was technically difficult. The apical views were difficult to obtain and are suboptimal in quality. Most of the acoustic windows were suboptimal, but the best imaging was obtained from the subcostal window. The heart rate ranged between 59-66 bpm during the study. Left Ventricle: The left ventricle is not well visualized. The left ventricle is grossly normal size. The left ventricle is normal in size and wall thickness. Left ventricular systolic function is probably normal. The ejection fraction is estimated to be 60-65%. There are no obvious focal wall motion abnormalities noted but poor endocardial definition reduces the sensitivity for the detection of such. Diastolic function could not be accurately assessed due to unobtainable data. Right Ventricle: The right ventricle is moderately dilated. Right ventricular systolic function is moderately reduced. Atria: The left atrium is borderline dilated. Right atrial size is normal. There is no Doppler evidence for an interatrial shunt. Mitral Valve: There is mild mitral annular calcification. There is trace mitral regurgitation. Aortic Valve: The aortic valve is not well visualized. The aortic valve is moderately calcified. There is moderately reduced leaflet mobility. There is moderate aortic stenosis. The peak aortic velocity is 2.7 m/sec. The aortic valve mean gradient is 14 mmHg. No aortic regurgitation is present. Tricuspid Valve: The tricuspid valve is not well visualized, but is grossly normal. There is trace tricuspid regurgitation. Pulmonary artery pressures cannot be estimated because of the lack of a measurable TR jet velocity. Pulmonic Valve: The pulmonic valve is not well visualized. There is no pulmonic valvular regurgitation. There is no other significant valvular heart disease. Great Vessels: The aortic root is normal size. The ascending aorta could not be visualized. The inferior vena cava was not visualized. Pericardium/ Pleura There is no pericardial effusion. There is no pleural effusion. MMode/2D Measurements & Calculations LVIDd: 4.3 cm LVOT diam: 2.0 cm LVIDs: 2.7 cm Ao root diam: 2.9 cm FS: 38.1 % EPSS: 0.73 cm IVSd: 0.91 cm LVPWd: 0.86 cm LV burrows. diameter/BSA (cm/m^2): 2.5 LV sys. diameter/BSA (cm/m^2): 1.5 LA dimension: 3.6 cm RA long axis: 4.2 cm LA A4 area: 16.4 cm2 RA area: 12.0 cm2 LA length (vol): 5.4 cm RA vol: 29.3 ml RA : 16.6 ml/m2 RVD1 (basal): 4.7 cm TAPSE: 2.1 cm Doppler Measurements & Calculations Ao V2 max: 266.3 cm/sec LVOT Max Jefe: 72.8 cm/sec Ao V2 mean: 171.8 cm/sec LV V1 max P.1 mmHg Ao max P.4 mmHg LV V1 VTI: 19.0 cm Ao mean P.7 mmHg WILLEM(I,D): 1.1 cm2 Ao V2 VTI: 54.3 cm WILLEM(V,D): 0.84 cm2 sev ratio: 0.35 WILLEM indexed to BSA (cm^2/m^2): 0.61 MV E max jefe: 70.8 cm/sec PA V2 max: 82.3 cm/sec MV A max jefe: 72.3 cm/sec PA V2 mean: 53.1 cm/sec MV E/A: 0.98 PA mean P.3 mmHg Med Peak E' Jefe: 9.9 cm/sec PA pr(Accel): 49.9 mmHg E/E' med: 7.2 Lat Peak E' Jefe: 13.5 cm/sec E/E' lat: 5.2 E/e' average: 6.2 MV dec time: 0.24 sec SV(OT): 57.9 ml Reading Physician:06:14 PM
[2020-08-01] MEDS: ENOXAPARIN 40 MG/0.4 ML SYRINGE SUBCUT (08:28)
[2020-08-01] MEDS: PANTOPRAZOLE 40 MG VIAL IV (08:28)
[2020-08-01] MEDS: MORPHINE 2 MG/ML INJ IV ×4 (08:28→21:31)
[2020-08-01 08:31] LABS: Cortisol AM (Before 10AM) 19.9 ug/dL (4.46-22.7)
[2020-08-01] MEDS: SODIUM CHLORIDE 0.9% FLUSH 10 ML IV ×2 (08:32→21:31)
[2020-08-01] MEDS: BUDESONIDE 0.5 MG/2 ML NEB INH ×2 (09:02→19:10)
[2020-08-01] MEDS: ALBUTEROL/IPRATROPIUM 3 ML AMPUL INH ×4 (09:03→19:11)
[2020-08-01 09:52] LABS: Troponin I < 0.012 ng/mL (0.01-0.034)
[2020-08-01] MEDS: CEFTRIAXONE 1 GM/50 ML FROZ.PIGGY IV (11:24)
--- NOTE | 2020-08-01 14:09 | PC.NURSE ---
PT REMAINS BIPAP DEPENDENT ( 30% FIO2 22/5) ABLE TO HAVE OFF FACE FOR MINUTES ONLY ALLOWING ORAL CARE AND OR DRINKS OF ENSURE OR WATER- ENSURE HAS BEEN ENCOURAGED. HE IS TOO WEAK TO CHEW AND EAT MOST THINGS- HE DENIES OVERT PAIN OR DISCOMFORT BUT MEDICATED PRN WITH MORPHINE MORE FOR HIS WORK LOAD OF BREATHING- NS AT TKO RATE TO MAINTAIN HIS IV SITE WELL IV ABX/IV STEROIDS AND PRN MS- SKIN IS INTACT TO COCCYX AND BARRIER CREAM APPLIED -WAFFLE CUSHION BENEATH HIS BOTTOM TO PREVENT SKIN BREAKDOWN- PLAN IS TO COMPLETE IV ABX AND STEROID COURSE ( WHICH IS THURSDAY) BEFORE FAMILY WILL DETERMINE COMFORT CARE MEASURES
--- NOTE | 2020-08-01 14:41 | P.PN_ITS ---
Subjective Subjective Date Patient Seen: 08/01/20 Time Patient Seen: 14:42 Exam Vital Signs (past 8 hours): - 08/01/20 07:00 08/01/20 07:30 08/01/20 07:55 Temperature Pulse Rate 48 L 49 L 50 L Respiratory Rate 23 24 18 Blood Pressure 105/55 L Pulse Oximetry 93 93 93 08/01/20 08:00 08/01/20 09:14 08/01/20 09:32 Temperature 97.1 F L Pulse Rate 48 L 56 L Respiratory Rate 17 18 Blood Pressure 120/60 162/101 H 119/60 Pulse Oximetry 93 98 08/01/20 10:00 08/01/20 10:20 08/01/20 11:00 Temperature Pulse Rate 49 L 48 L Respiratory Rate 15 14 Blood Pressure 98/53 L 98/53 L 89/53 L Pulse Oximetry 99 90 L 08/01/20 11:06 08/01/20 12:00 08/01/20 12:01 Temperature Pulse Rate 49 L 62 62 Respiratory Rate 27 H 30 H 31 H Blood Pressure 167/68 H Pulse Oximetry 93 93 93 08/01/20 12:30 08/01/20 13:00 08/01/20 13:01 Temperature Pulse Rate 66 65 66 Respiratory Rate 33 H 25 H 26 H Blood Pressure 145/65 H Pulse Oximetry 95 95 94 08/01/20 13:30 08/01/20 13:55 08/01/20 14:00 Temperature 97.7 F Pulse Rate 56 L 53 L 53 L Respiratory Rate 16 25 H 26 H Blood Pressure 94/50 L Pulse Oximetry 95 96 96 08/01/20 14:10 Temperature Pulse Rate Respiratory Rate Blood Pressure 94/50 L Pulse Oximetry Fraction of Inspired Oxygen 30 Oxygen Delivery Method CPAP Oxygen Flow Rate 30 Objective Labs Result Diagrams: 08/01/20 04:42 08/01/20 04:42 Labs: Laboratory Results - last 24 hr 07/30/20 08/01/20 08/01/20 16:34 04:42 04:42 WBC 7.0 RBC 3.31 L Hgb 10.9 L Hct 31.7 L MCV 95.7 MCH 32.8 MCHC 34.3 RDW 12.5 Plt Count 271 Neut % (Auto) 92.8 H Lymph % (Auto) 3.[address] [place] % (Auto) 3.7 Eos % (Auto) 0.0 L Baso % (Auto) 0.1 Neut # (Auto) 6500 Lymph # (Auto) [address] [place] # (Auto) 300 Eos # (Auto) 0 Baso # (Auto) 0 ABG pH ABG pCO2 ABG pO2 ABG HCO3 ABG Total CO2 ABG O2 Saturation ABG Base Excess FiO2 Sodium 124 L Potassium 5.5 H Chloride 84 L Carbon Dioxide 38 H BUN 58 H Creatinine 1.07 Estimated GFR > 60.0 BUN/Creatinine Ratio 54.2 H Glucose 173 H Calcium 9.1 Magnesium 2.3 Total Bilirubin 0.3 Conjugated Bilirubin 0.0 Unconjugated Bilirubin 0.1 AST 16 L ALT 15 Alkaline Phosphatase 49 Troponin I Total Protein 5.8 L Albumin 3.2 L Globulin 2.6 Albumin/Globulin Ratio 1.2 Cortisol AM Sample Urine Osmolality 446 08/01/20 08/01/20 08/01/20 04:42 04:42 06:28 WBC RBC Hgb Hct MCV MCH MCHC RDW Plt Count Neut % (Auto) Lymph % (Auto) [place] % (Auto) Eos % (Auto) Baso % (Auto) Neut # (Auto) Lymph # (Auto) [place] # (Auto) Eos # (Auto) Baso # (Auto) ABG pH 7.23 L* ABG pCO2 92.8 H* ABG pO2 154 H ABG HCO3 39 H ABG Total CO2 42 H ABG O2 Saturation 99 ABG Base Excess 11.0 H FiO2 50 Sodium Potassium Chloride Carbon Dioxide BUN Creatinine Estimated GFR BUN/Creatinine Ratio Glucose Calcium Magnesium Total Bilirubin Conjugated Bilirubin Unconjugated Bilirubin AST ALT Alkaline Phosphatase Troponin I < 0.012 Total Protein Albumin Globulin Albumin/Globulin Ratio Cortisol AM Sample 19.9 Urine Osmolality Quality VTE Deep Vein Thrombosis/Pulmonary Embolism Present on Admission: No
[2020-08-02] VITALS (17 sets, daily range): BP systolic 136–184; BP diastolic 67–84; PULSE 69–104; RESP 15–34; TEMP 31–37.7; O2SAT 91–99
[2020-08-02] MEDS: MORPHINE 2 MG/ML INJ IV ×9 (01:49→19:50)
[2020-08-02] MEDS: methylPREDNISolone 125 MG/2 ML VIAL 60 MG IV ×2 (01:50→10:55)
[2020-08-02 04:30] LABS: Add Manual Diff / Slide Review NO; Basophils Absolute Auto 0 /uL (0-100); Basophils Percent Auto 0.3 % (0-2); Eosinophils Absolute Auto 0 /uL (0-450); Hemoglobin 11.1 g/dL (13.5-17.5); Lymphocytes Absolute Auto 200 /uL (1100-4500); Lymphocytes Percent Auto 4.8 % (25-40); Mean Corpuscular HGB Conc 33.5 % (30-36); Mean Corpuscular Hemoglobin 31.9 PG (26-34); Mean Corpuscular Volume 95.3 fL (80-100); Monocytes Absolute Auto 100 /uL (0-900); Monocytes Percent Auto 2.5 % (3-14); Neutrophils Absolute Auto 3900 /uL (1500-7000); Neutrophils Percent Auto 92.4 % (50-75); Platelet Count 238 X10^3/uL (150-400); Red Blood Cell Count 3.46 X10^6/uL (4.5-5.9); Red Cell Distribution Width 12.3 % (11.6-14.8); White Blood Cell Count 4.2 X10^3/uL (4.5-11.0)
[2020-08-02 04:41] LABS: Alanine Aminotransferase 17 IU/L (<50); Albumin 3.3 g/dL (3.5-5.0); Albumin Globulin Ratio 1.2 (1.0-2.8); Alkaline Phosphatase 49 U/L (38-126); Aspartate Aminotransferase 16 IU/L (17-59); BUN Creatinine Ratio 59.1 (6-22); Bilirubin Total 0.4 mg/dL (0.2-1.3); Bilirubin Unconjugated 0.1 mg/dL (0.0-1.1); Blood Urea Nitrogen 55 mg/dL (9-20); Calcium 9.5 mg/dL (8.4-10.2); Chloride 87 mmol/L (98-107); Estimated Glomerular Filt Rate > 60.0 mL/min (>60); Globulin 2.7 g/dL (1.7-4.1); Glucose 134 mg/dL (80-110); HEMOLYSIS < 15 (0-50); Magnesium 2.4 mg/dL (1.6-2.3); Sodium 128 mmol/L (137-145)
[2020-08-02 04:50] LABS: Carbon Dioxide 39 mmol/L (22-32); Potassium 5.8 mmol/L (3.4-5.1)
[2020-08-02 05:25] LABS: pH ABG 7.34 (7.35-7.45)
--- NOTE | 2020-08-02 05:25 | PC.NURSE ---
shift leader note: Patient remains dependent on BIPAP throughout shift - 30% Fi02, 30/03. Patient alert, oriented and able to follow commands. Patient with no complaints of pain, but morphine administered PRN for shortness of breath and work of breathing. Patient remained tachypnic as well, as high as RR of 30's. Patient has been offered sips of fluid with intermittent periods of BIPAP being removed to do so. Brianda BURCH was notified at 0523 this AM regarding patient's potassium level of 5.8. No orders received. Patient is DNR with plans of withdrawing BIPAP today to make patient comfort measures only. Patient with good urine output throughout the shift. Allevyn was applied this morning by RN to protect bridge of nose from further breakdown from BIPAP mask. Finally, patient has been positioned every 2 hours to prevent skin breakdown.
[2020-08-02 05:26] LABS: HCO3 ABG 40 mmol/L (22-26); PO2 ABG 75 mmHg (80-100); TCO2 ABG 42 mmol/L (21-31)
[2020-08-02 05:27] LABS: Fractionated Inspired Oxygen 0.3; Oxygen Saturation ABG 93 % (95-100)
[2020-08-02] MEDS: ALBUTEROL/IPRATROPIUM 3 ML AMPUL INH ×3 (07:34→14:31)
[2020-08-02] MEDS: BUDESONIDE 0.5 MG/2 ML NEB INH (07:34)
[2020-08-02] MEDS: SODIUM CHLORIDE 0.9% FLUSH 10 ML IV (08:16)
[2020-08-02] MEDS: ENOXAPARIN 40 MG/0.4 ML SYRINGE SUBCUT (08:16)
[2020-08-02] MEDS: PANTOPRAZOLE 40 MG VIAL IV (08:16)
[2020-08-02] MEDS: CEFTRIAXONE 1 GM/50 ML FROZ.PIGGY IV (10:56)
--- NOTE | 2020-08-02 14:18 | PC.NURSE ---
Pt resting most of shift. Declines repositioning as it is easier for him to breathe in the position he is currently in. 1400- became increasingly tachypneic 40s with SPO2 decreasing to 88%. Administered PRN MS for dyspnea and elevated HOB. Pt remains tacypneic/dyspneic with SPO2 decreased to 83% RR 30s-40s. Increased FIO2 to 40% and provided emotional support to pt. Dr. Ebony zapien at this time and RT to bedside. Increased FIO2 to 50% which resulted in SPO2 98%. Post intervention, pt appears more comfortable with RR 20s although still labored. Plan is to transition to comfort care. Awaiting family.
[2020-08-02] MEDS: FUROSEMIDE 40 MG/4 ML VIAL IV (14:30)
--- NOTE | 2020-08-02 16:33 | CM.DPNOTE ---
Patient expected to pass here, Dr Beck following closely w/patient and family. No needs expected from DCP team at this time. IVIS
--- NOTE | 2020-08-02 16:35 | PC.NURSE ---
1630 Pt family states that he is ready to be removed from bipap. MS 2mg IV given prior to removing bipap and family remains at bedside.
[2020-08-02] MEDS: LORazepam 2 MG/ML INJ 0.5 MG IV (16:55)
--- NOTE | 2020-08-02 17:25 | PC.NURSE ---
1730 Pt given MS 2mg IV q 10 minutes until comfortable and breathing not laboured. Ativan 0.5mg given to help pt relax. Family remains at bedside.
--- NOTE | 2020-08-02 18:46 | P.PN_ITS ---
Subjective Subjective Date Patient Seen: 08/02/20 Interval history: Joseph Soliman is a 69-year-old male with a past medical history significant for 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 for end stage COPD with acute exacerbation, bacterial pneumonia, and worsening respiratory failure with minimal improvement on BIPAP. The patient is resting in bed and appears mildly distressed. He continues to desaturate on BiPAP. Plan to optimize oxygenation by adjusting BiPAP settings and increasing FiO2 until patient's family is able to gather at bedside later this afternoon. Continue to titrate morphine and lorazepam for shortness of breath and air hunger. Patient is alert and coherent. Patient does not wish to continue BiPAP and plan to remove BiPAP later this afternoon when patient's family is present and keep the patient comfortable until end of life. He understands that he is BiPAP dependent and once the noninvasive ventilator has been removed he will likely in several hours. Exam Vital Signs (past 8 hours): - 08/02/20 11:53 08/02/20 12:00 08/02/20 14:19 Temperature 99.8 F H Pulse Rate 86 Respiratory Rate 28 H Blood Pressure 184/84 H 176/82 H Pulse Oximetry 97 99 08/02/20 14:35 Temperature Pulse Rate 76 Respiratory Rate 26 H Blood Pressure Pulse Oximetry 98 Fraction of Inspired Oxygen 0.50 Oxygen Delivery Method BiPAP Oxygen Flow Rate 50 Narrative Exam Narrative: General: Elderly male sitting in bed and in mild acute distress, well- developed, alert, coherent, and appropriately interactive HEENT: Normocephalic, atraumatic. External ears without defect. Pupils equal, round, and reactive to light. Anicteric sclerae, moist conjunctivae, and no lid lag. BiPAP mask in place. Neck: Supple with full range of motion. No lymphadenopathy or thyromegaly. Cardiovascular: Regular rhythm, mildly tachycardic, without murmurs, rubs, or gallops appreciated. Pulmonary: Diminished throughout with little air movement with coarse upper airway rhonchi. Mild use of accessory muscles. Abdomen: Soft, bowel sounds present, nontender, nondistended. Extremities: No clubbing, cyanosis, or edema. Skin: Mohit colored skin. Neurological: Cranial nerves grossly intact. Objective Labs Result Diagrams: 08/02/20 04:08 08/02/20 04:08 Labs: Laboratory Results - last 24 hr 08/02/20 08/02/20 08/02/20 04:08 04:08 05:15 WBC 4.2 L RBC 3.46 L Hgb 11.1 L Hct 33.0 L MCV 95.3 MCH 31.9 MCHC 33.5 RDW 12.3 Plt Count 238 Neut % (Auto) 92.4 H Lymph % (Auto) 4.8 L Cuming % (Auto) 2.5 L Eos % (Auto) 0.0 L Baso % (Auto) 0.3 Neut # (Auto) 3900 Lymph # (Auto) 200 L Cuming # (Auto) 100 Eos # (Auto) 0 Baso # (Auto) 0 ABG pH 7.34 L ABG pCO2 74.0 H* ABG pO2 75 L ABG HCO3 40 H ABG Total CO2 42 H ABG O2 Saturation 93 L ABG Base Excess 14.0 H FiO2 0.3 Sodium 128 L Potassium 5.8 H Chloride 87 L Carbon Dioxide 39 H BUN 55 H Creatinine 0.93 Estimated GFR > 60.0 BUN/Creatinine Ratio 59.1 H Glucose 134 H Calcium 9.5 Magnesium 2.4 H Total Bilirubin 0.4 Conjugated Bilirubin 0.0 Unconjugated Bilirubin 0.1 AST 16 L ALT 17 Alkaline Phosphatase 49 Total Protein 6.0 L Albumin 3.3 L Globulin 2.7 Albumin/Globulin Ratio 1.2 Assessment & Plan Assessment & Plan narrative: Joseph Soliman is a 69-year-old male with a past medical history significant for 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 for end stage COPD with acute exacerbation, bacterial pneumonia, and worsening respiratory failure with minimal improvement on BIPAP. 1. End of life care. -Patient does not wish to continue BiPAP and plan to remove BiPAP later this afternoon when patient's family is present and keep the patient comfortable until end of life. -Continue to titrate morphine and lorazepam for shortness of breath and air hunger. 2. Acute on chronic hypoxemic and hypercapnic respiratory failure, present on admission. Active. -Chest x-ray at [facility] demonstrated diffuse interstitial prominence on the right. Repeat chest x-ray demonstrated increased lung volumes and fibrotic vs infectious appearing consolidation in the right mid lung. -Patient continued on BiPAP therapy without significant improvement in pCO2 and overall breathing and is now BiPAP dependent. Patient is clear about his wishes and would like to remove this therapy and be kept comfortable till the end of his life. -Continue albuterol, DuoNeb, and Pulmicort nebulizers. -Continued IV steroids 60 mg every 8 hours until comfort care then discontinued. -Ordered at furosemide 40 mg IV x1 to help improve shortness of breath. -Continue comfort care medications as above. -Continue BiPAP and supplemental oxygen until family present later this afternoon. 3. End stage COPD with exacerbation, present on admission. Active. -Patient noted to have severe COPD at baseline with an FEV1/FVC of 13 per [facility] records. Evidence of chronic hypercarbia with bicarb 70-90 consistently. -Continued management as noted above. 4. Community acquired pneumonia, present on admission. -Continued azithromycin 500 mg IV daily x3 doses and ceftriaxone 1 g IV daily x5 days. -Initial WBC of 18 at [facility] with imaging as noted above. Leukocytosis now resolved. 5. Hypertension, chronicpresent on admission. -Continued home carvedilol 6.25 mg twice daily, lisinopril 40 mg daily, and di ltiazem 360 mg daily. Later these medications were held due to bradycardia and hypotension since evening of 07/31. 6. Hyponatremia, chronic, present on admission. Stable. -Per [facility] records hyponatremia is chronic in the mid to low 120s. Urine sodium is <5, urine osm pending. -Discontinued IV fluid hydration. Ordered furosemide 40 mg IV x 1 to improve shortness of breath. Code status: DNR/DNI VTE: Contraindicated Disposition: Patient will likely in the next 12 hours. Quality VTE Deep Vein Thrombosis/Pulmonary Embolism Present on Admission: No
--- NOTE | 2020-08-02 21:24 | PC.NURSE ---
2130 pt repositioned for comfort. Respirations shallow rate 24, pulses barely palpable, heart tones distant. Medicated with MS PRN shortness of breath or apparent discomfort. Family remains at bedside.
--- NOTE | 2020-08-02 22:41 | PC.NURSE ---
2225 Pt with agonal resp leading to respiratory arrest. MD notified and verified time of . Daughter at bedside, information obtained re home. cargo services coordinator notified. Body bathed and prepared for home pickup.
--- NOTE | 2020-08-03 05:22 | P.DN_ITS ---
Discharge Summary History of Illness Narrative: Admission H&P, Joseph Soliman 69-year-old male with end-stage COPD, essential hypertension who is a direct transfer from [facility] for acute hypoxic and hypercarbic respiratory failure. He is home oxygen-dependent normally is supposed to use 3 L during the day and 5 L at night. He also uses a Trilogy machine for BiPAP and CPAP mode as he also has obstructive sleep apnea. He states that it has been hard to breathe and he for the past several weeks has been using 5 L of oxygen during the day instead of reducing it down to 3 L. He denies fevers sweats or chills, denies chest pain, denies ever having cardiac issues, denies nausea or vomiting, denies abdominal pain, denies dysuria diarrhea or constipation. He does have exertional dyspnea which limits his activities at home. The patient was requested for a lateral transfer at the patient's family's request with specific avoidance of 1 of the providers there. Per the admitting provider's note she had contacted the family member to update her on patient's condition and in her note stated that she informed the daughter that she was concerned that patient may not make it through the night because of his dyspnea and that at that time he was on BiPAP and only saturating at 93%. I did speak to the daughter and she was very upset about that initial phone call and demanded that the hospital transfer him to this facility. Per the transferring provider who was different from the admitting provider, the patient initially presented with a pH of 7.18 and a CO2 of 86 and then at 4:00 p.m. his pH was 7.27 with a CO2 of 73. On 35% FiO2 ePAP 5 and a respiratory rate of 20. The patient is unaware of what his Trilogy settings are at home. While at [facility] he was diagnosed with an acute respiratory failure secondary to exacerbation of end-stage COPD and pneumonia. He was initiated on IV ceftriaxone and IV azithromycin and received one dose there. Upon arrival to the floor the patient's temperature was 97.2?, blood pressure 145/75, heart rate 87, respiratory rate of 20 2% on FiO2 of 35 oxygen saturation of 95% he weighs 60.9 kg. WBC drawn here was 5.6, RBC 3.65, hemoglobin 11.7, hematocrit 34.8, platelet count was 274. His WBC upon arrival to [facility] was over 18,000 per the record. Our initial ABG indicated improvement with the ABG of pH of 7.32, pCO2 of 74.5, PO2 of 83, bicarb of 39, CO2 41, with a base excess of 12, FiO2 35%, sodium was 124, potassium 4.9, chloride 76, CO2 36, BUN 33, creatinine 0.75, GFR is greater than 6, glucose 100, magnesium 2.0, calcium 9.5, liver enzymes are within normal limits, troponin is 0.020, proBNP is 398, COVID-19 is negative. Hospital Course Date of Admission: 07/29/20 22:34 Date of : 08/02/20 Primary care provider: Jazmin Mauricio PA-C Discharge provider: KIERSTEN Vazquez Discharge Diagnosis: . Acute on chronic hypoxemic and hypercapnic respiratory failure. . End stage COPD with exacerbation. . Community acquired pneumonia. . COPD with exacerbation . Hypertension . Hyponatremia . End of life care. Hospital Course: The patient remained BiPAP without significant improvement in CO2, the patient's FEV1/FVC is 13 per records at [facility] consistent with end-stage COPD. He was treated for his community-acquired pneumonia with assist from ice and 500 mg x 3 doses ceftriaxone 1 g IV daily for 5 days with resolution of his white blood cell count. Patient continued to deteriorate with diminishing blood pressure necessitating discontinuation of antihypertensives and remained in normal sinus rhythm on EKG. Mr. Spencer remained on BiPAP for over 72 hours despite treatment for his underlying medical conditions. Goals of care discussion was held with family and reaffirmed the patient's wishes to be DNR/DNI and comfort measures provided. He progressively declined becoming somnolent and unresponsive. Morphine sulfate was used liberally to ensure comfort and prevent air hunger. The patient respirations became agonal and he became apneic. The patient at 10:25 p.m. Objective Labs Result Diagrams: 08/02/20 04:08 08/02/20 04:08 Labs: Laboratory Results - last 24 hr 08/02/20 05:15 ABG pH 7.34 L ABG pCO2 74.0 H* ABG pO2 75 L ABG HCO3 40 H ABG Total CO2 42 H ABG O2 Saturation 93 L ABG Base Excess 14.0 H FiO2 0.3
== END 2020-08-02 22:25 | disposition expired | DRG 189 ==
PROVIDERS: Internal Medicine; Admitting Provider Nurse Practitioner Family; PCP Physician Assistant Medical; Referring Provider Nurse Practitioner Family; Visit Provider Nurse Practitioner Family
DX: J96.21 Acute and chronic respiratory failure with hypoxia (principal); J18.9 Pneumonia, unspecified organism; J44.0 Chronic obstructive pulmonary disease with (acute) lower respiratory infection; E87.1 Hypo-osmolality and hyponatremia; J44.1 Chronic obstructive pulmonary disease with (acute) exacerbation; J96.22 Acute and chronic respiratory failure with hypercapnia; Z99.81 Dependence on supplemental oxygen; G47.33 Obstructive sleep apnea (adult) (pediatric); I10 Essential (primary) hypertension; Z66 Do not resuscitate; Z51.5 Encounter for palliative care
CPT/HCPCS: 36415; 36600; 71045; 80048; 80053; 80076; 81001; 82533; 82805; 83735; 83880; 83935; 84145; 84300; 84484; 85025; 87635; 87797; 93005; 93010; 93306; 94640; 94660; 94762; C9113; J1650; J1940; J2060; J2270; J2930